=== PATIENT | female | born 1955 | race African-American/Black ===

== ENCOUNTER 2018-02-06 06:30 | Emergency (ER) | payer OTHER ==
[2018-02-06 06:47] VITALS: BP 153/70; PULSE 99; TEMP 98.9; BMI 30.9
--- NOTE | 2018-02-06 07:09 | PDOC ---
History of Present Illness - General Chief Complaint: Cold Symptoms Stated Complaint: FLU LIKE SYMPTOMS Time Seen by Provider: 02/06/18 07:09 History Source: Patient Exam Limitations: No Limitations - History of Present Illness Initial Comments: 02/06/18 07:30 62 year old female with pmh diabetes presents to ED complaining of right ear pain, nasal congestion, clear bilateral eye discharge, facial pain, headache x6 days. She states she has been taking theraflu and contact cold/flu without relief of her symptoms. She denies chest pain, cough, shortness of breath, nausea, vomiting, diarrhea, abdominal pain, sore throat. Past History - Past Medical History Allergies/Adverse Reactions: Allergies Allergy/AdvReac Type Severity Reaction Status Date / Time Penicillins Allergy Verified 02/06/18 06:44 Home Medications: Ambulatory Orders Azithromycin [Zithromax 250mg Tablets -] 250 mg PO UTDICT #6 tab 02/06/18 - Suicide/Smoking/Psychosocial Hx Smoking History: Never smoked Have you smoked in the past 12 months: No Information on smoking cessation initiated: No Hx Alcohol Use: No Drug/Substance Use Hx: No Review of Systems - Review of Systems Able to Perform ROS?: Yes Comments:: 02/06/18 07:40 General: denies fever, chills, night sweats, generalized weakness. HEENT: admits to ear pain, nasal congestion, itchy eyes, eye discharge, facial pain. denies sore throat. Heart: denies chest pain, palpitations, syncope, lower extremity swelling, diaphoresis. Respiratory: denies shortness of breath, cough, sputum production, hematemesis. Abdomen: denies abdominal pain, nausea, vomiting, diarrhea, constipation, blood in stool. : denies dysuria, increased urinary frequency, hematuria, urinary incontinence , flank pain. Back: denies back pain. Musculoskeletal: denies joint pain, muscle pain, joint swelling. Neurological: admits to headache. denies dizziness, numbness, tingling, weakness. Skin: denies rash, laceration, abrasion. *Physical Exam - Vital Signs Last Vital Signs Temp Pulse Resp BP Pulse Ox 98.9 F 99 H 18 153/70 99 02/06/18 06:44 02/06/18 06:44 02/06/18 06:44 02/06/18 06:44 02/06/18 06:44 - Physical Exam Comments: 02/06/18 07:41 Constitutional: Well-nourished, Well-developed, appearing stated age. HEENT: head is normocephalic, atraumatic. EOMI. PERRLA. mild injection to bilateral sclera, no purulent discharge noted to bilateral eye. nasal mucosa erythematous bilaterally, no discharge. oral mucosa moist, pink. posterior pharynx without erythema, no tonsillar swelling bilaterally, no tonsillar exudates bilaterally. right TM erythematous, bulging. left TM no erythema, no bulging, appears normal. tenderness to palpation of bilateral maxillary sinus. no tenderness to frontal sinus. Neck: supple. Full ROM. no lymphadenopathy. Heart: regular rhythm. no murmurs, rubs or gallops. Lungs: clear to auscultation bilaterally. no crackles, rhonchi or wheezing. no stridor. Abdomen: soft, nontender. normal bowel sounds. no rebound, guarding, masses. Extremities: Peripheral pulses intact. No lower extremity edema. Neurological: CN 2-12 grossly intact. Moves all four extremities. Psych: awake, alert, oriented x3. Follows commands. Answers questions appropriately. Medical Decision Making - Medical Decision Making 02/06/18 07:44 62 year old female with pmh DM presenting to ED for nasal congestion, right ear pain, headache, bilateral eye itchiness, bilateral clear eye discharge, facial pain x6 days. 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 Initial Vital Signs Temp Pulse Resp BP Pulse Ox 98.9 F 99 H 18 153/70 99 02/06/18 06:44 02/06/18 06:44 02/06/18 06:44 02/06/18 06:44 02/06/18 06:44 Afebrile. No hypoxia. Otitis media likely, right TM erythematous and bulging. Sinusisits likely, tenderness to bilateral maxillary sinuses. Influenza unlikely, no fever, no sore throat, no N/V, appears well. Tylenol ordered for pain. Azithromycin ordered for otitis media, PCN allergic. 02/06/18 08:19 I spoke with the patient and her family member about the plan for her care, with which she agrees. Pt will be discharged with azithromycin prescription, follow up instructions, and strict return precautions. *DC/Admit/Observation/Transfer Diagnosis at time of Disposition: Otitis media, Sinusitis - Discharge Dispostion Disposition: HOME Condition at time of disposition: Stable Decision to Admit order: No - Prescriptions Prescriptions: Azithromycin [Zithromax 250mg Tablets -] 250 mg PO UTDICT #6 tab - Referrals Referrals: Nish Ambrocio MD [Primary Care Provider] - - Patient Instructions Printed Discharge Instructions: DI for Sinusitis, DI for Otitis Media (Middle Ear Infection)-Child Additional Instructions: You were seen today for ear pain, itchy eyes and headache. You have an ear infection in your right ear. You received the first dose of an antibiotic here in the Emergency Department. I have sent the prescription for the remainder of the antibiotics to your pharmacy. Pick them up today. Take all of your pills as prescribed. Do not miss any doses of your medication. Take a probiotic with your antibiotics to avoid antibiotic associated diarrhea. You may have an infection in your sinuses, the same antibiotic will treat this. Your eye itchiness may be due to allergies. Take an over the counter antihistamine, like Zyrtec, for this. Take Tylenol over the counter for pain. You recieved 1000 mg of Tylenol here in the Emergency Department. Your next dose of Tylenol can be 6 hours later. Drink lots of clear fluids, like water to stay hydrated. Return to the Emergency Department for development of fever, chills, nausea, vomiting, increasing ear pain, difficulty swallowing, swelling of throat, chest pain, shortness of breath or any other new, worsening or concerning symptoms. Follow up with your primary care doctor within 3 days, call their office today and make an appointment for this week. Bring the paperwork given to you today with you to your appointment. Your care is not complete until you follow up. - Post Discharge Activity Forms/Work/School Notes: Back to Work
--- NOTE | 2018-02-06 07:29 | PDOC ---
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 HEAD: Normal EYES: PERRLA, EOMI, sclera anicteric, injected conjunctiva ENT: Right TM erytehmatous, nares patent, oropharynx clear without exudates or tonisllar enlargement NECK: Normal range of motion, supple without lymphadenopathy LUNGS: Breath sounds equal, clear to auscultation bilaterally. No wheezes, and no crackles. HEART:Regular rate and rhythm, normal S1 and S2 without murmur, rub or gallop. ABDOMEN: Soft, nontender, no guarding, no rebound EXTREMITIES: Normal range of motion, no edema. NEUROLOGICAL: Cranial nerves II through XII grossly intact. Normal speech. No focal neurological deficits. SKIN: Warm, Dry, normal turgor, no rashes or lesions noted. - Medical Decision Making 02/06/18 07:47 62 yo F presenting to the ER with a complaint of ear pain, nasal congestion Examination concerning for otitis media and possibly early sinusitis Will give Azithromycin Will ask pt to follow up with PMD before the end of this week Monitor for fever return to the ER for any other concerns or complaints
[2018-02-06] MEDS ORDERED: ACETAMINOPHEN 500 MG TABLET (FP) PO ONE (07:34)
[2018-02-06] MEDS ORDERED: AZITHROMYCIN 250 MG TABLET PO ONE (07:37)
[2018-02-06] MEDS ORDERED: ACETAMINOPHEN 325 MG TABLET (FP) ONE (08:21)
[2018-02-06] MEDS ORDERED: AZITHROMYCIN 250 MG TABLET ONE (08:22)
== END 2018-02-06 08:33 | disposition home or self-care (01) ==
LOC: JER 06:30
DX: H66.91 Otitis media, unspecified, right ear (principal); J01.00 Acute maxillary sinusitis, unspecified; E11.9 Type 2 diabetes mellitus without complications; Z88.0 Allergy status to penicillin
CPT/HCPCS: 99281-25